=== PATIENT | female | born 1995 | race Hispanic/Latino ===

== ENCOUNTER 2021-06-11 14:10 | Emergency (ER) | payer BC, OTHER ==
--- OUTSIDE RECORDS SUMMARY | 2021-06-11 14:12 | XMS REPORT | Continuity of Care Document ---
:1995 Author Organization [facility] t Address [address] [place] [address] Care Team Providers Name Role Phone Unavailable Unavailable Unavailable Payers Payer Name Policy Type Policy Number Effective Date Expiration Date S ource Problems This patient has no known problems. Allergies, Adverse Reactions, Alerts Allergy Allergy Status Severity Reaction(s) Onset Inactive Treating Comm ents Source Name Type Date Date Clinician amoxicil DA Active SV 2017-0 [facility] [place] am[facility]il DA Active SV 2017-0 [facility] Medications This patient has no known medications. Procedures This patient has no known procedures. Results This patient has no known results.
[2021-06-11 15:02] LABS: Absolute Lymphocytes (CBC) 0.7 K/uL (0.7-4.9); Basophils % 0.1 % (0-1.3); Lymphocytes % 8.3 % (15.3-44.8); MPV 8.7 fL (7.6-11.3); RBC Red Blood Cell Count 4.94 M/uL (3.86-4.86)
[2021-06-11 15:15] LABS: Protime INR 1.33
[2021-06-11] MEDS ORDERED: ONDANSETRON 4 MG/2 ML VIAL ONE (15:27)
[2021-06-11] MEDS ORDERED: ACETAMINOPHEN 500 MG TAB ONE (15:27)
[2021-06-11] MEDS ORDERED: Ringers Lactate 1,000 ML IV ONE (15:27)
--- NOTE | 2021-06-11 15:38 | RAD REPORT ---
EXAM DESCRIPTION: RAD - Chest Single View - 06/11/2021 3:23 pm CLINICAL HISTORY: DYSPNEA COMPARISON: No comparisons FINDINGS: Moderate patchy bilateral airspace disease. The heart size is within normal limits.No acut e osseous abnormality. No significant pleural effusions or pneumothorax. IMPRESSION: Moderate airspace disease bilaterally concerning for multifocal pneumonia, including Cov id-19.
[2021-06-11 15:50] LABS: Albumin 3.5 g/dL (3.4-5.0); Bilirubin Direct 0.2 mg/dL (0-0.2); Bilirubin Total 0.6 mg/dL (0.2-1.0); Ferritin 463.1 ng/mL (8-388); Potassium 3.6 mmol/L (3.5-5.1); Protein, Total 8.8 g/dL (6.4-8.2)
[2021-06-11 16:50] LABS: White Blood Cell Scan OK (OK)
[2021-06-11 16:51] LABS: Blood Morphology Comment NOT SEEN (NOT SEEN); Platelet Estimate ADEQ
[2021-06-11] MEDS ORDERED: METHYLPREDNISOLONE 125 MG INJ ONE (17:02)
--- NOTE | 2021-06-11 17:54 | EDPHYS ---
Physician Documentation [facility] Name: Kathryn Cruz Age: 26 yrs Sex: Female : 1995 Arrival Date: 06/11/2021 Time: 14:14 Bed 9 Private MD: ED Physician Ana Hare HPI: 06/11 15:20 This 26 yrs old Female presents to ER via Wheelchair with complaints of jr8 Shortness Of Breath - COVID+, Vomiting. 15:20 Onset: The symptoms/episode began/occurred gradually, 1 week(s) ago. Duration: The jr8 symptoms are continuous. The patient's shortness of breath is aggravated by exertion. Associated signs and symptoms: Pertinent positives: chest pain, non-productive cough, fever, vomiting, Diarrhea. Severity of symptoms: At their worst the symptoms were moderate in the emergency department the symptoms are unchanged. The patient has not experienced similar symptoms in the past. The patient has not recently seen a physician. Patient stated that she was diagnosed with Covid last week. Has been having fevers, body aches, and chills which has now turned into nausea, vomiting, diarrhea, and occasional shortness of breath. Was 89% on room air upon arrival. Historical: - Allergies: 14:54 No Known Allergies; iw - PMHx: 14:54 blood clot; iw - PSHx: 14:54 section; iw - Immunization history:: Client reports having NOT received the Covid vaccine. - Social history:: Smoking status: Patient denies any tobacco usage or history of. ROS: 15:20 Eyes: Negative for injury, pain, redness, and discharge, ENT: Negative for injury, jr8 pain, and discharge, Neck: Negative for injury, pain, and swelling, Cardiovascular: Negative for chest pain, palpitations, and edema, Back: Negative for injury and pain, MS/Extremity: Negative for injury and deformity, Skin: Negative for injury, rash, and discoloration, Neuro: Negative for headache, weakness, numbness, tingling, and seizure. 15:20 Respiratory: Positive for cough, dyspnea on exertion, shortness of breath. 15:20 Abdomen/GI: Positive for nausea, vomiting, and diarrhea, Negative for abdominal pain. Exam: 15:20 Eyes: Pupils equal round and reactive to light, extra-ocular motions intact. Lids and jr8 lashes normal. Conjunctiva and sclera are non-icteric and not injected. Cornea within normal limits. Periorbital areas with no swelling, redness, or edema. ENT: Nares patent. No nasal discharge, no septal abnormalities noted. Tympanic membranes are normal and external auditory canals are clear. Oropharynx with no redness, swelling, or masses, exudates, or evidence of obstruction, uvula midline. Mucous membranes moist. Neck: Trachea midline, no thyromegaly or masses palpated, and no cervical lymphadenopathy. Supple, full range of motion without nuchal rigidity, or vertebral point tenderness. No Meningismus. Respiratory: Lungs have equal breath sounds bilaterally, clear to auscultation and percussion. No rales, rhonchi or wheezes noted. Mild tachypnea present Abdomen/GI: Soft, non-tender, with normal bowel sounds. No distension or tympany. No guarding or rebound. No evidence of tenderness throughout. Back: No spinal tenderness. No costovertebral tenderness. Full range of motion. Skin: Warm, dry with normal turgor. Normal color with no rashes, no lesions, and no evidence of cellulitis. MS/ Extremity: Pulses equal, no cyanosis. Neurovascular intact. Full, normal range of motion. Neuro: Awake and alert, GCS 15, oriented to person, place, time, and situation. Cranial nerves II-XII grossly intact. Motor strength 5/5 in all extremities. Sensory grossly intact. Cerebellar exam normal. Normal gait. 15:20 Cardiovascular: Rate: tachycardic, Rhythm: regular, Pulses: Pulses are 2+ in right radial artery and left radial artery. Heart sounds: normal, normal S1and S2, no S3 or S4, no murmur, no rub, no gallop, Edema: is not appreciated, JVD: is not appreciated. Vital Signs: 14:34 BP 128 / 83; Pulse 125; Resp 28; Temp 100.2; Pulse Ox 89% ; Weight 58.06 kg; Height 5 mh5 ft. 0 in. (152.40 cm); 15:31 BP 122 / 84; Pulse 117; Resp 20; Pulse Ox 93% on R/A; iw 14:34 Body Mass Index 25.00 (58.06 kg, 152.40 cm) 5 MDM: 14:16 Patient medically screened. jr8 16:13 Data reviewed: vital signs, nurses notes, lab test result(s), EKG, radiologic studies, jr8 plain films. Data interpreted: Pulse oximetry: on room air is 89 %. Interpretation: hypoxia. Counseling: I had a detailed discussion with the patient and/or guardian regarding: the historical points, exam findings, and any diagnostic results supporting the discharge/admit diagnosis, lab results, radiology results. ED course: Patient has overall improved but oxygen remains at rest between 89 and 93% depending on movement. Recommend that patient go home on home oxygen if possible if not will need to be admitted.. 17:40 ED course: was able to secure home oxygen for patient. Waiting on oxygen to be [facility] delivered and then patient can be safely discharged home. Overall patient is feeling better at this time.. 06/11 14:28 Order name: BMP; Complete Time: 15:57 06/11 14:28 Order name: C-Reactive Protein; Complete Time: 15:57 06/11 14:28 Order name: CBC with Diff; Complete Time: 16:52 06/11 14:28 Order name: D-Dimer; Complete Time: 15:31 06/11 14:28 Order name: Ferritin; Complete Time: 15:57 06/11 14:28 Order name: LFT's; Complete Time: 15:57 06/11 14:28 Order name: PT-INR; Complete Time: 15:31 06/11 14:28 Order name: Ptt, Activated; Complete Time: 15:31 06/11 14:28 Order name: CXR XRAY; Complete Time: 15:57 06/11 16:50 Order name: CBC Smear Scan; Complete Time: 16:52 EDMS 06/11 14:28 Order name: EKG; Complete Time: 14:29 06/11 14:28 Order name: Cardiac monitoring; Complete Time: 14:39 06/11 14:28 Order name: Droplet/Contact Precautions; Complete Time: 14:39 06/11 14:28 Order name: EKG - Nurse/Tech; Complete Time: 14:39 06/11 14:28 Order name: IV Start; Complete Time: 14:44 06/11 14:28 Order name: Labs collected and sent; Complete Time: 14:44 jr8 06/11 14:28 Order name: O2 Per Protocol; Complete Time: 14:44 jr8 06/11 14:28 Order name: O2 Sat Monitoring; Complete Time: 14:45 jr8 Administered Medications: 15:31 Drug: Tylenol 1000 mg Route: PO; iw 16:00 Follow up: Response: No adverse reaction iw 15:31 Drug: Ringers - Lactated Ringers Solution 1000 ml Route: IV; Rate: bolus; Site: right iw antecubital; 17:00 Follow up: IV Status: Completed infusion iw 15:31 Drug: Zofran (Ondansetron) 4 mg Route: IVP; Site: right antecubital; iw 16:00 Follow up: Response: No adverse reaction iw 16:49 Drug: SOLU-Medrol (methylPrednisoLONE) 125 mg Route: IVP; Site: right antecubital; iw 17:30 Follow up: Response: No adverse reaction iw Disposition: 18:59 Co-signature as Attending Physician, Ana Hare I agree with the assessment and plan sp3 of care. Disposition Summary: 06/11/21 17:54 Discharge Ordered Location: Home jr8 Problem: new jr8 Symptoms: have improved jr8 Condition: Stable jr8 Diagnosis - Pneumonia due to SARS-associated coronavirus jr8 Followup: jr8 - With: Gurmeet Abdalla MD - When: 5 - 6 days - Reason: Recheck today's complaints, Continuance of care, Re-evaluation by your physician Discharge Instructions: - Discharge Summary Sheet jr8 - COVID-19 jr8 Forms: - Medication Reconciliation Form jr8 - Thank You Letter jr8 - Antibiotic Education jr8 - Prescription Opioid Use jr8 Signatures: Dispatcher [employer] EDMS Berenice Toro RN RN iw Carson Glass PA PA jr8 Patel, Setul sp3 Corrections: (The following items were deleted from the chart) 14:44 14:28 Beard ordered. jr8 dh3 15:53 15:26 Chest For PE Angio+CT.RAD.BRZ ordered. EDID EDMS 16:14 15:20 Patient stated that she was diagnosed with Covid last week. Has been having jr8 fevers, body aches, and chills which has now turned into nausea, vomiting, diarrhea, and occasional shortness of breath. jr8 16:16 15:20 Eyes: Pupils equal round and reactive to light, extra-ocular motions intact. Lids jr8 and lashes normal. Conjunctiva and sclera are non-icteric and not injected. Cornea within normal limits. Periorbital areas with no swelling, redness, or edema. ENT: Nares patent. No nasal discharge, no septal abnormalities noted. Tympanic membranes are normal and external auditory canals are clear. Oropharynx with no redness, swelling, or masses, exudates, or evidence of obstruction, uvula midline. Mucous membranes moist. Neck: Trachea midline, no thyromegaly or masses palpated, and no cervical lymphadenopathy. Supple, full range of motion without nuchal rigidity, or vertebral point tenderness. No Meningismus. Respiratory: Lungs have equal breath sounds bilaterally, clear to auscultation and percussion. No rales, rhonchi or wheezes noted. No increased work of breathing, no retractions or nasal flaring. Abdomen/GI: Soft, non-tender, with normal bowel sounds. No distension or tympany. No guarding or rebound. No evidence of tenderness throughout. Back: No spinal tenderness. No costovertebral tenderness. Full range of motion. Skin: Warm, dry with normal turgor. Normal color with no rashes, no lesions, and no evidence of cellulitis. MS/ Extremity: Pulses equal, no cyanosis. Neurovascular intact. Full, normal range of motion. Neuro: Awake and alert, GCS 15, oriented to person, place, time, and situation. Cranial nerves II-XII grossly intact. Motor strength 5/5 in all extremities. Sensory grossly intact. Cerebellar exam normal. Normal gait. jr8
--- NOTE | 2021-06-11 17:54 | ER ---
Nurse's Notes [facility] Name: Kathryn Cruz Age: 26 yrs Sex: Female : 1995 Arrival Date: 06/11/2021 Time: 14:14 Bed 9 Private MD: Diagnosis: Pneumonia due to SARS-associated coronavirus Presentation: 06/11 14:53 Chief complaint: Patient states: COVID + since Thursday , is having diff breathing, iw vomiting, gen weakness. Coronavirus screen: Client presents with at least one sign or symptom that may indicate coronavirus-19. Client reports previous positive COVID test result. Ebola Screen: Patient negative for fever greater than or equal to 101.5 degrees Fahrenheit, and additional compatible Ebola Virus Disease symptoms Patient denies exposure to infectious person. Patient denies travel to an Ebola-affected area in the 21 days before illness onset. No symptoms or risks identified at this time. Initial Sepsis Screen: Does the patient meet any 2 criteria? No. Patient's initial sepsis screen is negative. Does the patient have a suspected source of infection? No. Patient's initial sepsis screen is negative. Risk Assessment: Do you want to hurt yourself or someone else? Patient reports no desire to harm self or others. Onset of symptoms was June 11, 2021. 14:53 Method Of Arrival: Wheelchair iw 14:53 Acuity: DEBBY 3 iw Historical: - Allergies: 14:54 No Known Allergies; iw - PMHx: 14:54 blood clot; iw - PSHx: 14:54 section; iw - Immunization history:: Client reports having NOT received the Covid vaccine. - Social history:: Smoking status: Patient denies any tobacco usage or history of. Screenin:36 Abuse screen: Denies threats or abuse. Denies injuries from another. Nutritional iw screening: No deficits noted. Tuberculosis screening: No symptoms or risk factors identified. Fall Risk None identified. Assessment: 15:31 Reassessment: Patient appears in no apparent distress at this time. Patient and/or iw family updated on plan of care and expected duration. Pain level reassessed. Vital Signs: 14:34 BP 128 / 83; Pulse 125; Resp 28; Temp 100.2; Pulse Ox 89% ; Weight 58.06 kg; Height 5 mh5 ft. 0 in. (152.40 cm); 15:31 BP 122 / 84; Pulse 117; Resp 20; Pulse Ox 93% on R/A; iw 14:34 Body Mass Index 25.00 (58.06 kg, 152.40 cm) [facility] ED Course: 14:14 Patient arrived in ED. iw 14:16 Carson Glass PA is PHCP. jr8 14:16 Ana Hare is Attending Physician. jr8 14:29 Berenice Toro, RN is Primary Nurse. iw 14:30 Inserted saline lock: 20 gauge in right antecubital area, using aseptic technique. iw 14:35 Patient has correct armband on for positive identification. Placed in gown. Bed in low mh5 position. Call light in reach. Side rails up X 1. surveillance monitor on. Pulse ox on. NIBP on. 14:52 BMP Sent. [facility] 14:52 C-Reactive Protein Sent. [facility] 14:52 CBC with Diff Sent. [facility] 14:52 D-Dimer Sent. [facility] 14:52 Ferritin Sent. [facility] 14:52 LFT's Sent. [facility] 14:52 PT-INR Sent. [facility] 14:52 Ptt, Activated Sent. [facility] 14:52 Initial lab(s) drawn, by ED staff, sent to lab. EKG done, by ED staff, reviewed by [facility] Ana Hare. 14:54 Triage completed. iw 15:23 CXR XRAY In Process Unspecified. EDMS 17:53 Gurmeet Abdalla MD is Referral Physician. jr8 Administered Medications: 15:31 Drug: Tylenol 1000 mg Route: PO; iw 16:00 Follow up: Response: No adverse reaction iw 15:31 Drug: Ringers - Lactated Ringers Solution 1000 ml Route: IV; Rate: bolus; Site: right iw antecubital; 17:00 Follow up: IV Status: Completed infusion iw 15:31 Drug: Zofran (Ondansetron) 4 mg Route: IVP; Site: right antecubital; iw 16:00 Follow up: Response: No adverse reaction iw 16:49 Drug: SOLU-Medrol (methylPrednisoLONE) 125 mg Route: IVP; Site: right antecubital; iw 17:30 Follow up: Response: No adverse reaction Outcome: 17:54 Discharge ordered by . jr8 18:45 Patient left the ED. iw Signatures: Dispatcher [employer] Berenice Rios RN RN Carson Wheat PA PA jr8 Janette Echavarria mh5
[2021-06-11 19:15] VITALS: TEMP 100.2
[2021-06-11 19:22] VITALS: BP 122/84; O2SAT 93
--- NOTE | 2021-06-12 16:29 | EKG ---
Test Date: 2021-06-11 Test Time: 14:44:39 [employer]: [employer] MEASUREMENT RESULTS: Intervals: Rate: 121 IA: 152 QRSD: 68 QT: 300 QTc: 426 [place]: P: 64 IA: 152 QRS: 59 T: 55 INTERPRETIVE STATEMENTS: Sinus tachycardia Otherwise normal ECG No previous ECG available for comparison Electronically Signed On 06-12-21 16:24:17 CDT by Neymar Dickinson
== END 2021-06-11 18:45 | disposition home or self-care (01) ==
LOC: ER 14:10
DX: U07.1 COVID-19 (principal); J12.82 Pneumonia due to coronavirus disease 2019
CPT/HCPCS: 96365; 93005; 85025; 80048; 36415; 85610; 85379; 80076; 85730; 82728; 86140; 71045; 96375; 99284; J7120; J2930; J2405